=== PATIENT | female | born 2000 | race Caucasian/White ===

== ENCOUNTER → 2021-05-09 15:16 | Outpatient (CLI) | payer OTHER, SELFPAY ==
--- NOTE | ~2021-05-09 | MR_ITS ---
EXAMINATION: MR wrist RT wo con DATE: 05/09/2021 16:12 INDICATION: Right wrist pain TECHNIQUE: Magnetic resonance imaging (MRI) of the right wrist was performed without intravenous cont rast. Sequences performed include axial PD-weighted FSE and PD-weighted FS FSE, coronal PD-weighted F S FSE and T1-weighted SE, and sagittal PD-weighted FS FSE and PD-weighted FSE. COMPARISON: None FINDINGS: Intrinsic ligaments: The scapholunate and lunotriquetral ligaments are normal. Triangular fibrocartilage complex (TFCC): The triangular fibrocartilage including its foveal and styloid attachments as well as the dorsal and volar radioulnar ligaments are normal. The ulnar collateral ligament, ulnotriquetral ligament and men iscal homologue are normal. The extensor carpi ulnaris tendon sheath is normal. Extensor wrist: Extensor tendons of the wrist are normal. No tenosynovitis. Flexor wrist: The flexor tendons of the wrist are normal. No abnormality in the carpal tunnel with normal median n erve. Guyon's canal: Guyon's canal including the ulnar nerve and artery are normal. Bones/other: Normal marrow signal. No fracture, erosions, avascular necrosis or abnormal marrow replacing process. Joint spaces are normal with no focal cartilage defects appreciated. There is a multilobulated gang lion cyst arising from the volar aspect of the radioscaphoid articulation and which measures 12 x 11 x 7 mm located along the volar margin of the radial styloid process deep and ulnar to the radial maryana ry neurovascular bundle. IMPRESSION: 1. 12 x 11 x 7 mm multilobulated ganglion cyst volar to the radial styloid process. Reviewed, dictated and finalized at location [facility]. [facility] IMPRESSION: 1. 12 x 11 x 7 mm multilobulated ganglion cyst volar to the radial styloid proc ess.
== END ==
PROVIDERS: Visit Provider Physician Assistant
DX: S62.001A Unspecified fracture of navicular [scaphoid] bone of right wrist, initial encounter for closed fracture (principal); M67.431 Ganglion, right wrist
CPT/HCPCS: 73221